=== PATIENT | female | born 1980 | race Caucasian/White ===

== ENCOUNTER 2016-10-23 06:38 | Emergency (ER) | payer OTHER ==
--- NOTE | 2016-10-23 07:03 | ED Physician Documentation ---
PD HPI URI - Stated complaint Stated Complaint: COUGH/SORE THROAT - Chief complaint Chief Complaint: Resp - History obtained from History obtained from: Patient - History of Present Illness Timing - onset: How many days ago (5-6) Timing duration: Days (5-6) Timing details: Gradual onset, Still present (worsening with productive cough and sore throat now.) Associated symptoms: Chills, Sore throat, Productive cough, Dyspnea. No: NVD Contributing factors: No: Sick contact, Travel, Immunocompromised Improves by: No: Rest, Medication Similar symptoms before: Has not had sx before Recently seen: Not recently seen Review of Systems Constitutional: reports: Fever (subjective the past day), Chills, Myalgias Nose: denies: Rhinorrhea / runny nose, Congestion Throat: reports: Sore throat Cardiac: denies: Chest pain / pressure Respiratory: reports: Dyspnea (feeling heavy feeling on her chest, and pain anteriorly with coughing.), Cough GI: denies: Nausea, Vomiting, Diarrhea Skin: denies: Rash, Lesions Neurologic: reports: Generalized weakness. 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 - Present Medications Home Medications: Ambulatory Orders Medication Instructions Recorded Confirmed Methylphenidate HCl [Concerta] 54 mg PO DAILY 11/14/13 10/23/16 Albuterol Sulfate [Proair Hfa 2 puffs IH QID #1 hfa.aer.ad 10/23/16 Inhaler] Azithromycin [Zithromax] 250 mg PO DAILY #6 tablet 10/23/16 Dexamethasone [Decadron] 4 mg PO DAILY #5 tablet 10/23/16 guaiFENesin/CODEINE [Robitussin AC] 10 ml PO Q6H PRN #240 ml 10/23/16 - Allergies Allergies/Adverse Reactions: Allergies Allergy/AdvReac Type Severity Reaction Status Date / Time No Known Drug Allergies Allergy Verified 10/23/16 06:45 - Social History Does the pt smoke?: No Smoking Status: Never smoker Does the pt drink ETOH?: Yes Does the pt have substance abuse?: No - Immunizations Immunizations are current?: Yes - POLST Patient has POLST: No PD ED PE NORMAL - Vitals Vital signs reviewed: Yes - General General: Alert and oriented X 3, No acute distress, Well developed/nourished, Other (very harsh, barky cough. Some perihilar wheezing. No peripheral wheezing sounds. ) - HEENT HEENT: Ears normal, Pharynx benign - Neck Neck: Supple, no meningeal sign, Other (left anterior lymph node felt) - Cardiac Cardiac: RRR, No murmur - Respiratory Respiratory: Clear bilaterally - Abdomen Abdomen: Soft, Non tender - Derm Derm: Normal color, Warm and dry - Neuro Neuro: Alert and oriented X 3, No motor deficit, Normal speech Results - Vitals Vitals: Vital Signs - 24 hr 10/23/16 06:40 Temperature 36.2 C L Heart Rate 91 Respiratory 18 Rate Blood Pressure 141/80 H O2 Saturation 99 Oxygen O2 Source Room air PD MEDICAL DECISION MAKING - ED course Complexity details: considered differential, d/w patient Departure - Departure Disposition: 01 Home, Self Care Clinical Impression: Upper respiratory tract infection Qualifiers: URI type: unspecified URI Qualified Code(s): J06.9 - Acute upper respiratory infection, unspecified Condition: Stable Record reviewed to determine appropriate education?: Yes Instructions: ED Bronchitis Abx Tx Follow-Up: [facility] [Provider Group] Prescriptions: Dexamethasone [Decadron] 4 mg PO DAILY #5 tablet Albuterol Sulfate [Proair Hfa Inhaler] 2 puffs IH QID #1 hfa.aer.ad guaiFENesin/CODEINE [Robitussin AC] 10 ml PO Q6H PRN #240 ml PRN Reason: Cough Azithromycin [Zithromax] 250 mg PO DAILY #6 tablet Comments: Tylenol or Ibuprofen for fevers/pains. Drink lots of fluids. These can be viral or sometimes bacterial. Will treat it with Zithromax antibiotic, Decadron steroid anti-inflammatory. Albuterol inhaler 2-3 puffs 4 times daily for 7-10 days. Cough medication as needed for cough/pains.
[2016-10-23] MEDS ORDERED: ALBUTEROL NEB 2.5 MG/3 ML INH ONE (07:09)
[2016-10-23] MEDS: ALBUTEROL NEB 2.5 MG/3 ML INH STA (07:12)
[2016-10-23] MEDS ORDERED: CHERRY SYRUP 10 ML UDC PO ONE (07:23)
[2016-10-23] MEDS ORDERED: DEXAMETHASONE 10 MG/ML VIAL ONE (07:23)
[2016-10-23] MEDS ORDERED: BENZONATATE 100 MG CAPSULE PO ONE (07:23)
[2016-10-23] MEDS: BENZONATATE 100 MG CAPSULE PO STA (07:27)
[2016-10-23] MEDS: DEXAMETHASONE 10 MG/ML VIAL PO STA (07:27)
[2016-10-23 07:30] VITALS: BP 122/69
== END 2016-10-23 07:36 | disposition home or self-care (01) ==
LOC: ED 06:38
DX: J06.9 Acute upper respiratory infection, unspecified (principal)
CPT/HCPCS: 94640; 94664; 99283

== ENCOUNTER 2017-03-04 09:04 | Emergency (ER) | payer OTHER ==
--- NOTE | 2017-03-04 10:12 | XRAY Preliminary Report ---
Exam: XR Finger(s) LT IMPRESSION: Normal digit radiography. [facility] SITE ID: [id number]
--- NOTE | 2017-03-04 10:14 | XRAY Report ---
EXAM: RIGHT FIRST DIGIT RADIOGRAPHY EXAM DATE: 03/04/2017 09:43 AM. CLINICAL HISTORY: Thumb injury prox phalanx. COMPARISON: None. TECHNIQUE: 3 views. FINDINGS: Bones: Normal. No fracture or bone lesion. Joints: Normal. No subluxations. Soft Tissues: Normal. No soft tissue swelling. IMPRESSION: Normal digit radiography. [facility] Referring Provider Line: [phone] SITE ID: [id number]
--- NOTE | 2017-03-04 10:37 | ED Physician Documentation ---
PD HPI UPPER EXT INJURY - Stated complaint Stated Complaint: LEFT HAND INJ - Chief complaint Chief Complaint: Ext Problem - History obtained from History obtained from: Patient - History of Present Illness Location: Left, Finger (thumb) Type of injury: Blunt / blow Where injury occurred: Home Timing - onset: Last night Timing - duration: Hours Timing - details: Abrupt onset, Still present Improved by: Rest, Immobilization Worsened by: Moving, Palpating Associated symptoms: No: Weakness, Numbness, Tingling, Swelling Contributing factors: No: Anticoagulated Similar symptoms before: Diagnosis (thumb sprain) Recently seen: Clinic (The patient has been seen for a thumb injury and is in a thumb spica splint) - Additonal information Additional information: 36 y/o female injured her left thumb in a dive and has pain in the proximal phlange. She has a thumb spica splint she is wearing and she took this off last night to play a game that involved pushing the opposing opponent. She injured her thumb doing this and she is here today with persistent pain. Review of Systems Constitutional: denies: Fever Nose: denies: Congestion Respiratory: denies: Cough GI: denies: Vomiting Skin: denies: Laceration (s) Musculoskeletal: reports: Extremity pain, Joint pain. 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 - Present Medications Home Medications: Ambulatory Orders Medication Instructions Recorded Confirmed Methylphenidate HCl [Concerta] 54 mg PO DAILY 11/14/13 03/04/17 - Allergies Allergies/Adverse Reactions: Allergies Allergy/AdvReac Type Severity Reaction Status Date / Time No Known Drug Allergies Allergy Verified 03/04/17 09:15 - Social History Does the pt smoke?: No Smoking Status: Never smoker Does the pt drink ETOH?: Yes Does the pt have substance abuse?: No - Immunizations Immunizations are current?: Yes - POLST Patient has POLST: No PD ED PE NORMAL - Vitals Vital signs reviewed: Yes (hypertensive ) - General General: No acute distress, Well developed/nourished - HEENT HEENT: Atraumatic, PERRL - Respiratory Respiratory: No respiratory distress - Derm Derm: Normal color, Warm and dry, No rash - Extremities Extremities: Other (There is tenderness to the MCP joint of the thumb. There is no restriction in ROM and the distal N/V is intact. ) - Neuro Neuro: No motor deficit, No sensory deficit, Normal speech - Psych Psych: Normal mood, Normal affect Results - Vitals Vitals: Vital Signs - 24 hr 03/04/17 03/04/17 09:12 10:48 Temperature 36.5 C 36.7 C Heart Rate 68 56 L Respiratory 18 16 Rate Blood Pressure 128/90 H 122/79 O2 Saturation 99 100 Oxygen O2 Source Room air - Rads (name of study) thumb L Radiology: Prelim report reviewed (IMPRESSION: Normal digit radiography), EMP read indepedently, See rad report PD MEDICAL DECISION MAKING - ED course Complexity details: considered differential, d/w patient ED course: 36 y/o female with a thumb contusion has not been wearing her splint. Her initial injury appears to have been a dislocation of the MCP joint and she continues to have pain in this joint. She has not been wearing her splint regularly and I have suggested she might visit the ortho office to consider casting. Departure - Departure Disposition: 01 Home, Self Care Clinical Impression: Thumb contusion Qualifiers: Encounter type: initial encounter Damage to nail status: without damage Laterality: left Qualified Code(s): S60.012A - Contusion of left thumb without damage to nail, initial encounter Condition: Stable Instructions: ED Contusion Finger Follow-Up: Matty Hinkle DO [Primary Care Provider] - [facility] [Provider Group] Comments: It looks like you are having a hard time keeping your splint on and cast may improve the healing time. Follow up with the orthopedic clinic to consider a thumb spica cast. Discharge Date/Time: 03/04/17 10:50
[2017-03-04 10:49] VITALS: BP 122/79
== END 2017-03-04 10:50 | disposition home or self-care (01) ==
LOC: ED 09:04
DX: S60.012A Contusion of left thumb without damage to nail, initial encounter (principal); W22.8XXA Striking against or struck by other objects, initial encounter; Z91.19 Patient's noncompliance with other medical treatment and regimen; I10 Essential (primary) hypertension
CPT/HCPCS: 73140; 99282; 99283

== ENCOUNTER 2018-11-27 16:29 | Emergency (ER) | payer OTHER ==
[2018-11-27] MEDS ORDERED: cephALEXin 250 MG CAPSULE PO STA (18:09)
[2018-11-27] MEDS ORDERED: IBUPROFEN 800 MG TABLET PO STA (18:09)
--- NOTE | 2018-11-27 18:13 | ED Physician Documentation ---
PD HPI HEENT - Stated complaint Stated Complaint: Sore throat - Chief complaint Chief Complaint: Cardiac - History obtained from History obtained from: Patient - History of Present Illness Timing - onset: Last night Timing - details: Still present Location: Throat Worsens: Swalllowing Associated symptoms: Swollen nodes, Headache Similar symptoms before: Has not had sx before - Treatment prior to arrival Treatment prior to arrival: Tylenol this morning. - Additional information Additional information: The patient is a 38-year-old female who presents with sore throat that started last night. Her son tested positive for strep yesterday. In addition to sore throat she also complains of occipital headache, low back pain and myalgias, left earache, and swollen lymph nodes. She denies cough, shortness of breath, fever, nausea or vomiting. She denies history of similar symptoms in the past. Review of Systems Constitutional: reports: Myalgias. denies: Fever Eyes: denies: Irritation Ears: reports: Ear pain (left ear) Nose: denies: Congestion Throat: reports: Sore throat Cardiac: denies: Chest pain / pressure Respiratory: denies: Dyspnea, Cough GI: denies: Abdominal Pain, Nausea, Vomiting : denies: Dysuria Skin: denies: Rash Musculoskeletal: reports: Back pain Neurologic: reports: Headache. 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 - Present Medications Home Medications: Ambulatory Orders Medication Instructions Recorded Confirmed Methylphenidate HCl [Concerta] 54 mg PO DAILY 11/14/13 11/27/18 Levothyroxine Sodium [Synthroid] 75 mcg PO DAILY 11/27/18 11/27/18 cephALEXin [Cephalexin] 500 mg PO TID #20 tablet 11/27/18 - Allergies Allergies/Adverse Reactions: Allergies Allergy/AdvReac Type Severity Reaction Status Date / Time No Known Drug Allergies Allergy Verified 11/27/18 16:45 - Social History Does the pt smoke?: No Smoking Status: Never smoker Does the pt drink ETOH?: Yes Does the pt have substance abuse?: No - Immunizations Immunizations are current?: Yes - POLST Patient has POLST: No PD ED PE NORMAL - Vitals Vital signs reviewed: Yes (Normal) - General General: Alert and oriented X 3, Well developed/nourished - HEENT HEENT: Atraumatic, EOMI, Ears normal, Other (Oropharynx is erythematous, without exudates or peritonsillar swelling.) - Neck Neck: Supple, no meningeal sign, Other (Enlarged anterior cervical nodes bilaterally.) - Cardiac Cardiac: RRR, No murmur - Respiratory Respiratory: No respiratory distress, Clear bilaterally - Abdomen Abdomen: Soft, Non tender - Back Back: No CVA TTP - Derm Derm: No rash - Extremities Extremities: No edema, No calf tenderness / cord - Neuro Neuro: Alert and oriented X 3, No motor deficit, Normal speech Results - Vitals Vitals: Vital Signs - 24 hr 11/27/18 11/27/18 16:42 18:05 Temperature 37.0 C 37.5 C Heart Rate 85 93 Respiratory 18 17 Rate Blood Pressure 119/76 124/85 H O2 Saturation 100 100 Oxygen O2 Source Room air - EKG (time done) 16:48 Rate: Rate (enter#) (95) Rhythm: NSR [place]: Normal Intervals: Normal NV QRS: Normal Ischemia: Non specific changes (Nonspecific T-wave flattening.) Computer interpretation: Agree with computer - Labs Labs: Laboratory Tests 11/27/18 11/27/18 16:53 16:53 Influenza A (Rapid) Negative Influenza B (Rapid) Negative Group A Strep Rapid POSITIVE H PD MEDICAL DECISION MAKING - ED course Complexity details: reviewed results, re-evaluated patient, considered d ifferential, d/w patient, d/w family ED course: Patient's presentation is most consistent with strep pharyngitis, confirmed with a positive rapid strep screen. Her examination does not reveal evidence of peritonsillar abscess. She had described an episode of chest discomfort to the triage nurse, so an EKG was performed at triage. It does not reveal any evidence of ischemic abnormality. Treatment in the emergency department included administration of cephalexin 500 mg orally, and ibuprofen 800 mg orally. She is being discharged with a prescription for cephalexin. I discussed with her and her the expected course of illness, antibiotic treatment and outpatient follow-up, as well as potentially worrisome signs or symptoms that should prompt reevaluation in the emergency department. Departure - Departure Disposition: 01 Home, Self Care Clinical Impression: Acute streptococcal pharyngitis Condition: Stable Instructions: ED Strep Pharyngitis Conf Follow-Up: Aniyah Briggs MD [Primary Care Provider] - Prescriptions: cephALEXin [Cephalexin] 500 mg PO TID #20 tablet Comments: Gargle with cool liquids. Take cephalexin 3 times daily as prescribed. You can use ibuprofen, up to 800 mg 3 times daily for fever or discomfort. Follow-up with your primary physician within 2 weeks. Call to schedule an appointment. Return to the emergency department if you develop increasing difficulty swallowing, or otherwise worsening symptoms. Discharge Date/Time: 11/27/18 18:31
[2018-11-27 18:14] VITALS: BP 124/85
== END 2018-11-27 18:31 | disposition home or self-care (01) ==
LOC: ED 16:29
DX: J02.0 Streptococcal pharyngitis (principal); R07.89 Other chest pain
CPT/HCPCS: 87275; 87276; 87430; 93005; 99283; A9270

== ENCOUNTER 2018-12-16 15:41 | Emergency (ER) | payer OTHER ==
--- NOTE | 2018-12-16 16:21 | ED Physician Documentation ---
PD HPI FOCAL NEURO - Stated complaint Stated Complaint: RT ARM NUMBNESS - Chief complaint Chief Complaint: Neuro - History obtained from History obtained from: Patient - History of Present Illness Timing - onset: Today (did 1000 kicks in [place]ae [place] and felt very tired, and noted some headache and right arm numbness.) Timing - details: Abrupt onset, Still present Weakness: No: Face, Arm, Leg Numbness: Arm, Right. No: Face, Leg Associated symptoms: Headache. No: Nausea / vomiting Contributing factors: negative: Anticoagulated Baseline status: positive: A&OX3, ambulatory, indep, Mildly confused Similar symptoms before: Has not had sx before Recently seen: Not recently seen Review of Systems Constitutional: denies: Fever Nose: denies: Rhinorrhea / runny nose, Congestion Throat: denies: Sore throat Respiratory: denies: Cough GI: denies: Abdominal Pain, Nausea, Vomiting, Diarrhea Skin: denies: Rash, Lesions PD PAST MEDICAL HISTORY - Past Medical History Cardiovascular: None Respiratory: None Endocrine/Autoimmune: None Psych: ADD/ADHD - Past Surgical History 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, 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 - Present Medications Home Medications: Ambulatory Orders Medication Instructions Recorded Confirmed Methylphenidate HCl [Concerta] 54 mg PO DAILY 11/14/13 11/27/18 Levothyroxine Sodium [Synthroid] 75 mcg PO DAILY 11/27/18 11/27/18 - Allergies Allergies/Adverse Reactions: Allergies Allergy/AdvReac Type Severity Reaction Status Date / Time No Known Drug Allergies Allergy Verified 12/16/18 15:52 - Social History Does the pt smoke?: No Smoking Status: Never smoker Does the pt drink ETOH?: Yes Does the pt have substance abuse?: No - Immunizations Immunizations are current?: Yes - POLST Patient has POLST: No PD ED PE NORMAL - Vitals Vital signs reviewed: Yes - General General: Alert and oriented X 3, No acute distress, Well developed/nourished - HEENT HEENT: Ears normal, Pharynx benign - Neck Neck: Supple, no meningeal sign, No adenopathy - Cardiac Cardiac: RRR, No murmur - Respiratory Respiratory: Clear bilaterally - Abdomen Abdomen: Soft, Non tender - Derm Derm: Normal color, Warm and dry - Extremities Extremities: No tenderness to palpate, Normal ROM s pain - Neuro Neuro: Alert and oriented X 3, chute tender 2-12 intact, No motor deficit, No sensory deficit, Normal speech, Other Eye Opening: Spontaneous Motor: Obeys Commands Verbal: Oriented GCS Score: 15 - Psych Psych: Normal mood Results - Vitals Vitals: Oxygen O2 Source Room air - Labs Labs: Laboratory Tests 12/16/18 12/16/18 12/16/18 17:00 17:00 17:00 WBC 8.4 RBC 4.46 Hgb 13.5 Hct 40.4 MCV 90.4 MCH 30.3 MCHC 33.5 RDW 13.8 Plt Count 280 MPV 7.5 L Neut # (Auto) 6.2 Lymph # (Auto) 1.7 [place] # (Auto) 0.4 Eos # (Auto) 0.0 Baso # (Auto) 0.0 Absolute Nucleated RBC 0.00 Nucleated RBC % 0.0 Sodium 139 Potassium 3.5 Chloride 104 Carbon Dioxide 25 Anion Gap 10.0 BUN 14 Creatinine 0.8 Estimated GFR (MDRD) 81 L Glucose 85 Calcium 9.0 Magnesium 2.1 Total Bilirubin 0.9 AST 22 ALT 18 Alkaline Phosphatase 31 L Total Creatine Kinase 108 Total Protein 6.9 Albumin 4.3 Globulin 2.6 Albumin/Globulin Ratio 1.7 Lipase 33 Urine Color Urine Clarity Urine pH Ur Specific [place] Urine Protein Urine Glucose (UA) Urine Ketones Urine Occult Blood Urine Nitrite Urine Bilirubin Urine Urobilinogen Ur Leukocyte Esterase Ur Microscopic Review Urine Culture Comments 12/16/18 17:18 WBC RBC Hgb Hct MCV MCH MCHC RDW Plt Count MPV Neut # (Auto) Lymph # (Auto) [place] # (Auto) Eos # (Auto) Baso # (Auto) Absolute Nucleated RBC Nucleated RBC % Sodium Potassium Chloride Carbon Dioxide Anion Gap BUN Creatinine Estimated GFR (MDRD) Glucose Calcium Magnesium Total Bilirubin AST ALT Alkaline Phosphatase Total Creatine Kinase Total Protein Albumin Globulin Albumin/Globulin Ratio Lipase Urine Color YELLOW Urine Clarity CLEAR Urine pH 5.5 Ur Specific [place] 1.020 Urine Protein NEGATIVE Urine Glucose (UA) NEGATIVE Urine Ketones >=80 H Urine Occult Blood NEGATIVE Urine Nitrite NEGATIVE Urine Bilirubin NEGATIVE Urine Urobilinogen 0.2 (NORMAL) Ur Leukocyte Esterase NEGATIVE Ur Microscopic Review NOT INDICATED Urine Culture Comments NOT INDICATED - Rads (name of study) head CT Radiology: Prelim report reviewed (no acute process), See rad report PD MEDICAL DECISION MAKING - ED course Complexity details: considered differential (headache could be from hydration or lyte after the intense workout. Arm paresth could be local too as was holding up arms while doing the kicking. Head CT normal. Consider venous flow issues too. [place] better with IV fluids. ), d/w patient Departure - Departure Disposition: 01 Home, Self Care Clinical Impression: Paresthesias, Hypertensive response to exercise Headache Qualifiers: Headache type: unspecified Headache chronicity pattern: acute headache Intractability: not intractable Qualified Code(s): R51 - Headache Condition: Stable Record reviewed to determine appropriate education?: Yes Follow-Up: Aniyah Briggs MD [Primary Care Provider] - Comments: Stay well-hydrated as usual. I think this was just a response to the extreme exercise with some blood pressure response and likely fluctuation in blood flow. No signs of more significant cause at this time. Discharge Date/Time: 12/16/18 19:02
[2018-12-16] MEDS ORDERED: SODIUM CHLORIDE 0.9% 1,000 ML IV ONE (16:47)
[2018-12-16 17:04] LABS: BASOPHILS % (AUTO) 0.5 %; EOSINOPHILS % (AUTO) 0.2 %; HGB - HEMOGLOBIN 13.5 g/dL (12.0-16.0); LYMPHOCYTES # (AUTO) 1.7 10^3/uL (1.5-3.5); LYMPHOCYTES % (AUTO) 20.7 %; MEAN CORPUSCULAR HEMOGLOBIN 30.3 pg (27.0-31.0); MEAN CORPUSCULAR HGB CONC 33.5 g/dL (32.0-36.0); MEAN CORPUSCULAR VOLUME 90.4 fL (81.0-99.0); MEAN PLATELET VOLUME 7.5 fL (7.9-10.8); MONOCYTES # (AUTO) 0.4 10^3/uL (0.0-1.0); MONOCYTES % (AUTO) 4.9 %; NEUTROPHILS # (AUTO) 6.2 10^3/uL (1.5-6.6); NEUTROPHILS % (AUTO) 73.7 %; PLT - PLATELET COUNT 280 10^3/uL (130-450); RED BLOOD COUNT 4.46 10^6/uL (4.20-5.40); RED CELL DISTRIBUTION WIDTH 13.8 % (12.0-15.0); WHITE BLOOD COUNT 8.4 x10^3/uL (4.8-10.8)
[2018-12-16 17:19] LABS: ALBUMIN 4.3 g/dL (3.2-5.5); ALBUMIN/GLOBULIN RATIO 1.7 (1.0-2.2); BILIRUBIN,TOTAL 0.9 mg/dL (0.2-1.0); CREATININE 0.8 mg/dL (0.4-1.0); TOTAL PROTEIN 6.9 g/dL (6.7-8.2)
--- NOTE | 2018-12-16 17:48 | CT Report ---
Reason: vigorous workout and feels confused Procedure Date: 12/16/2018 Accession Number: [id number] / [id number] Procedure: CT - HEAD WO CPT Code: FULL RESULT: EXAM: CT HEAD EXAM DATE: 12/16/2018 05:34 PM. CLINICAL HISTORY: Vigorous workout and feels confused. COMPARISON: MRI of 05/04/2011. TECHNIQUE: Multiaxial CT images were obtained from the foramen magnum to the vertex. Reformats: Sagittal and coronal. IV contrast: None. In accordance with CT protocol optimization, one or more of the following dose reduction techniques were utilized for this exam: automated exposure control, adjustment of mA and/or KV based on patient size, or use of iterative reconstructive technique. FINDINGS: Parenchyma: No intraparenchymal hemorrhage. No evidence of mass, midline shift, or CT findings of infarction. Ruth-white differentiation is distinct. Extraaxial Spaces: Normal for age. No subdural or epidural collections identified. Ventricles: Normal in size and position. Sinuses and Orbits: Imaged paranasal sinuses, orbits, and mastoids show no significant abnormality. Bones: No evidence of fracture or calvarial defect. Other: None. IMPRESSION: Normal head CT. [facility]
[2018-12-16 18:10] LABS: BILIRUBIN,URINE NEGATIVE (NEGATIVE); GLUCOSE, URINE (UA) NEGATIVE (NEGATIVE); KETONES,URINE (UA) >=80 mg/dL (NEGATIVE); LEUKOCYTE ESTERASE, URINE NEGATIVE (NEGATIVE); NITRITE,URINE NEGATIVE (NEGATIVE); OCCULT BLOOD,URINE NEGATIVE (NEGATIVE); PH,URINE 5.5 PH (5.0-7.5); PROTEIN,URINE NEGATIVE (NEGATIVE); UROBILINOGEN,URINE 0.2 (NORMAL) E.U./dL (NORMAL)
[2018-12-16 18:14] LABS: CLARITY,URINE CLEAR (CLEAR)
[2018-12-16 19:02] VITALS: BP 123/80
== END 2018-12-16 19:02 | disposition home or self-care (01) ==
LOC: ED 15:41
DX: R20.2 Paresthesia of skin (principal); R51 Headache
CPT/HCPCS: 36415; 70450; 80053; 81001; 81003; 82550; 83690; 83735; 85025; 87086; 96360; 99283; 99284

== ENCOUNTER 2019-03-09 09:36 | Outpatient (CLI) | payer OTHER ==
[2019-03-09] MEDS ORDERED: BUFFERED LIDOCAINE 10 ML SYRINGE ONE (09:50)
[2019-03-09] MEDS ORDERED: IOTHALAMATE MEGLUMINE 50 ML VIAL ONE (09:50)
[2019-03-09] MEDS ORDERED: GADOPENTETATE DIMEGLUMINE 5 ML VIAL IVP ONE ×2 (09:50→10:51)
[2019-03-09] MEDS ORDERED: IOTHALAMATE MEGLUMINE 50 ML VIAL IVP ONE (10:51)
[2019-03-09] MEDS: BUFFERED LIDOCAINE 10 ML SYRINGE IU ONE ×2 (10:52→10:53)
--- NOTE | 2019-03-09 13:30 | XRAY Report ---
Reason: UNSPECIFIED INJURY OF SHOULDER AND UPPER ARM,INITI Procedure Date: 03/09/2019 Accession Number: [id number] / [id number] Procedure: FL - Arthrogram Needle Placement CPT Code: FULL RESULT: EXAM: LEFT SHOULDER ARTHROGRAPHIC INJECTION WITH FLUOROSCOPIC GUIDANCE EXAM DATE: 03/09/2019 10:27 AM. CLINICAL HISTORY: Pain left shoulder COMPARISON: None. TECHNIQUE: The risks, benefits, and alternatives of the procedure were discussed with the patient. All questions were answered. Written and verbal consent were obtained. The left glenohumeral joint was marked under fluoroscopy and prepped and draped in a sterile manner. Local anesthesia was performed with 1% lidocaine. A 22-gauge needle was then inserted into the glenohumeral joint. 10 mL of a dilute gadolinium solution was then injected. The needle was removed without immediate complication. Other: None. Fluoroscopy Time: 33 seconds. Number of Images: 1. FINDINGS: Bones and joints: No fracture or subluxation. Injection: Fluoroscopic images demonstrate needle placement and contrast in the left glenohumeral joint. No contrast extravasation outside of the glenohumeral joint. IMPRESSION: Successful fluoroscopically guided arthrographic injection of the left shoulder. [facility]
--- NOTE | 2019-03-10 16:52 | MRI Report ---
Reason: UNSPECIFIED INJURY OF SHOULDER AND UPPER ARM,INITI Procedure Date: 03/09/2019 Accession Number: [id number] / [id number] Procedure: MRI - Arthrogram Shoulder LT CPT Code: FULL RESULT: EXAM: LEFT SHOULDER MRI ARTHROGRAM WITH CONTRAST EXAM DATE: 03/09/2019 11:32 AM. CLINICAL HISTORY: Left shoulder pain and limited range of motion after fall. COMPARISON: None. TECHNIQUE: Multiplanar, multisequence T1-weighted and fluid-sensitive sequences of the shoulder after an arthrographic injection of dilute gadolinium, dictated under a separate exam. Other: None. FINDINGS: Acromioclavicular Region: The acromion is type II. The acromioclavicular joint is unremarkable. The coracoacromial and coracoclavicular ligaments are intact. There is no contrast or fluid in the subacromial/subdeltoid bursa. Glenohumeral Region: No subluxation. No loose bodies. The articular cartilage is unremarkable. The glenohumeral ligaments and joint capsule are unremarkable. Bone Marrow: No fracture, marrow edema or bone lesions. Labrum: The labrum is unremarkable. Biceps Tendon: The long head of the biceps tendon and biceps emanuel are intact. Musculature/Rotator Cuff: The subscapularis, supraspinatus, infraspinatus, and teres minor tendons are intact. No edema or fatty atrophy. Other: The subcutaneous tissues are unremarkable. IMPRESSION: No MRI abnormalities in the shoulder. [facility]
== END 2019-03-09 09:37 | disposition home or self-care (01) ==
LOC: DI 09:36
PROVIDERS: ATTEND Physician Assistant
DX: S49.92XA Unspecified injury of left shoulder and upper arm, initial encounter (principal)
CPT/HCPCS: 23350; 73222; 77002; Q9961

== ENCOUNTER 2021-03-25 06:54 | Outpatient (CLI) | payer OTHER ==
--- NOTE | 2021-03-25 12:09 | MRI Report ---
PROCEDURE: Shoulder RT W/O INDICATIONS: PAIN IN RIGHT SHOULDER TECHNIQUE: Noncontrast oblique coronal T2 fast spin echo with fat saturation, oblique sagittal T1 spin echo and T2 fast spin echo with fat saturation, axial T1 spin echo and T2 fast spin echo with fat saturation t hrough the shoulder. COMPARISON: None. FINDINGS: Image quality: Excellent. Rotator cuff: Distal supraspinatus tendinosis and possible very low-grade articular surface partial-t hickness tear at its insertion on humeral head is seen. The distal infraspinatus tendon is intact. Di stal subscapularis tendinosis and low-grade intrasubstance partial thickness tear is also seen. No fu ll-thickness rotator cuff tendon rupture. No rotator cuff muscle atrophy on sagittal images. Bones and bursae: No bone marrow contusions or fractures. No acromioclavicular joint degeneration. The acromion demonstrates conventional anatomy, without an os acromiale. No pathologic subacromial/ subdeltoid bursal fluid is present. Capsule and soft tissues: In the absence of intra-articular contrast, the labrum and glenohumeral li gaments appear intact. The long head of the biceps tendon demonstrates normal location and morpholog y. The rotator interval appears normal, without fibrosis. The coracohumeral ligament is normal in t hickness. IMPRESSION: 1. Distal supraspinatus tendinosis and very low-grade articular surface partial-thickness tear at its insertion on humeral head. Distal subscapularis tendinosis/low-grade intrasubstance partial thicknes s tear. No full-thickness rotator cuff tendon rupture. 2. No marrow edema. No fracture or dislocation. 3. No gross focal labral tear. Reviewed by: Cameron Parsons MD on 03/25/2021 12:08 PM PDT Approved by: Cameron Parsons MD on 03/25/2021 12:08 PM PDT Station ID: [id number]
== END 2021-03-25 06:55 | disposition home or self-care (01) ==
LOC: DI 06:54
PROVIDERS: ATTEND Student in an Organized Health Care Education/Training Program
DX: M25.511 Pain in right shoulder (principal); M75.101 Unspecified rotator cuff tear or rupture of right shoulder, not specified as traumatic; S46.811A Strain of other muscles, fascia and tendons at shoulder and upper arm level, right arm, initial encounter

== ENCOUNTER 2023-09-30 08:34 | Emergency (ER) | payer OTHER ==
[2023-09-30 08:55] VITALS: BP 126/90; O2SAT 100
--- NOTE | 2023-09-30 09:47 | ED Physician Documentation ---
PD HPI SKIN - Stated complaint Stated Complaint: RASH - Chief complaint Chief Complaint: Wound - History obtained from History obtained from: Patient - Additional information Additional information: Patient is a 43-year-old female presenting for evaluation of a rash that been present for at least a week. She reports that she has a house pig that was diagnosed with mites approximately 3 weeks ago and given ivermectin. Her vet told her that she has a good chance that she will also get the mites which will cause symptoms of scabies. Patient reports worsening rash over the past 1 week including terrible itching which occurs at night. She reports rash on bilateral upper extremities, waistband. She says that the rash was also present on her hands and between digits but she was using tea tree oil and soaking her hands in this and that seems to have helped with that. She says that she has had scabies before and this feels similar. Review of Systems Constitutional: denies: Fever Cardiac: denies: Chest pain / pressure Respiratory: denies: Dyspnea GI: denies: Abdominal Pain Skin: reports: Rash PD PAST MEDICAL HISTORY - Past Medical History Cardiovascular: None Respiratory: None Endocrine/Autoimmune: None Psych: ADD/ADHD - Past Surgical History Past Surgical History: Yes /CONTINUOUS PROCESS ROTARY DRUM TANNER: Tubal ligation, 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 - Present Medications Home Medications: Ambulatory Orders Medication Instructions Recorded Confirmed Methylphenidate HCl [Concerta] 54 mg PO DAILY 11/14/13 11/27/18 Levothyroxine Sodium [Synthroid] 75 mcg PO DAILY 11/27/18 11/27/18 Permethrin 5% Cream 1 applic TOP ONCE #2 each 09/30/23 - Allergies Allergies/Adverse Reactions: Allergies Allergy/AdvReac Type Severity Reaction Status Date / Time No Known Drug Allergies Allergy Verified 12/16/18 15:52 - Social History Does the pt smoke?: No Smoking Status: Never smoker Does the pt drink ETOH?: Yes Does the pt have substance abuse?: No - Immunizations Immunizations are current?: Yes - POLST Patient has POLST: No PD ED PE NORMAL - General General: Alert and oriented X 3, No acute distress, Well developed/nourished - HEENT HEENT: Atraumatic - Neck Neck: Supple, no meningeal sign - Derm Derm: Other (Papules and raised areas to bilateral forearms and along the waistband with areas of excoriation, no vesicles, no warmth or abnormal drainage) Results - Vitals Vitals: Vital Signs - 24 hr 09/30/23 08:47 Temperature 36.4 C L Heart Rate 84 Respiratory 17 Rate Blood Pressure 126/90 H O2 Saturation 100 Oxygen O2 Source Room air PD Medical Decision Making - ED course ED course: Patient presenting for evaluation of a rash. On appearance and based on her history it is concerning for scabies. Discussed options for treatment and she is agreeable to trial of permethrin. Patient counseled that she may need a repeated dose. She is advised on follow-up if her symptoms or not improving and advised on concerning symptoms to return for. No signs of bacterial infection. Patient is otherwise well-appearing and nontoxic. Departure - Departure Disposition: 01 Home, Self Care Clinical Impression: Scabies Condition: Stable Instructions: ED Scabies Prescriptions: Permethrin 5% Cream 1 applic TOP ONCE #2 each Comments: I am concerned that your rash today is from scabies given your known exposure. I have sent a prescription for permethrin which is a topical cream for you to use to eliminate this infection. You may need to repeat this 1 more time in 14 days if you are still having symptoms. Please have close follow-up with your primary care provider. Your prescription was sent to [facility] in [place]. Forms: PCP List Discharge Date/Time: 09/30/23 10:03
== END 2023-09-30 10:03 | disposition home or self-care (01) ==
LOC: ED 08:34
DX: B86 Scabies (principal); Z79.899 Other long term (current) drug therapy
CPT/HCPCS: 99282; 99283